=== PATIENT | female | born 1960 | race Caucasian/White ===

== ENCOUNTER 2017-11-30 08:46 | Day surgery (SDC) | payer OTHER ==
[2017-11-30] MEDS ORDERED: PROPOFOL 200 MG/20 ML VIAL As Ordered (09:15)
[2017-11-30] MEDS ORDERED: LIDOCAINE 2% INJ 100 MG/5 ML SDV (FOR ANES.) As Ordered (09:15)
[2017-11-30] MEDS ORDERED: NS 1,000 ML IV (09:45)
== END 2017-11-30 11:05 | disposition home or self-care (01) ==
LOC: M OPP 08:46
DX: Z12.11 Encounter for screening for malignant neoplasm of colon (principal); Z86.010 Personal history of colon polyps; K57.30 Diverticulosis of large intestine without perforation or abscess without bleeding; K64.8 Other hemorrhoids; K62.89 Other specified diseases of anus and rectum; I10 Essential (primary) hypertension; E78.5 Hyperlipidemia, unspecified; E11.9 Type 2 diabetes mellitus without complications; Z78.0 Asymptomatic menopausal state; N32.81 Overactive bladder; Z79.84 Long term (current) use of oral hypoglycemic drugs; Z79.899 Other long term (current) drug therapy; Z80.3 Family history of malignant neoplasm of breast
CPT/HCPCS: 45378

== ENCOUNTER → 2020-02-26 | Outpatient (CLI) | payer OTHER ==
[~2020-02-26] MED LIST: ATOR1TAB21 PO; FENO145T7 PO; GLIP-162 PO; INVO100T PO; JANU100T PO; METF10004 PO; OXYB5TAB10 PO
== END ==
LOC: M LABSMTC 10:01
PROVIDERS: ATTEND Pediatrics
DX: Z20.828 Contact with and (suspected) exposure to other viral communicable diseases (principal)

== ENCOUNTER → 2022-05-29 | Outpatient (REF) | payer OTHER | LOC: M SFHCDERM 18:23 | PROVIDERS: ATTEND Nurse Practitioner Family | DX: D23.39 Other benign neoplasm of skin of other parts of face (principal) ==

== ENCOUNTER 2023-02-20 06:49 | Day surgery (SDC) | payer OTHER ==
[~2023-02-20] VITALS: Ht 152.4 cm; Wt 73.0 kg
[~2023-02-20 06:49] MED LIST changes: +JARD1TAB3 PO; +NS 1,000 ML IV ONE; -OXYB5TAB10 PO; +OXYB5TAB11 PO
[2023-02-20] MEDS ORDERED: propofoL 200 MG/20 ML VIAL As Ordered ONE ×2 (08:10→08:17)
[2023-02-20 08:26] VITALS: TEMP 97.5
[2023-02-20 08:44] VITALS: BP 127/77; O2SAT 96
== END 2023-02-20 08:58 | disposition home or self-care (01) ==
LOC: M OPP 06:49
PROVIDERS: ATTEND Internal Medicine Gastroenterology
DX: Z12.11 Encounter for screening for malignant neoplasm of colon (principal); Z86.010 Personal history of colon polyps; E11.9 Type 2 diabetes mellitus without complications; Z79.02 Long term (current) use of antithrombotics/antiplatelets; Z79.84 Long term (current) use of oral hypoglycemic drugs

== ENCOUNTER 2023-06-01 12:13 | Day surgery (SDC) | payer OTHER ==
[~2023-06-01] VITALS: Ht 152.4 cm; Wt 73.2 kg
[~2023-06-01 12:13] MED LIST changes: -NS 1,000 ML IV ONE; -OXYB5TAB11 PO; +OXYB5TAB14 PO
[2023-06-01] MEDS: NS 1,000 ML IV ONE (12:37)
[2023-06-01] MEDS ORDERED: LIDOCAINE 2% 100MG/5ML SDV (FOR ANES.) As Ordered ONE (14:02)
[2023-06-01] MEDS ORDERED: propofoL 200 MG/20 ML VIAL As Ordered ONE (14:02)
[2023-06-01] MEDS ORDERED: LABETALOL 100MG/20ML VIAL As Ordered ONE (14:11)
[2023-06-01 14:18] VITALS: TEMP 98.5
[2023-06-01 14:41] VITALS: BP 144/72; O2SAT 98
== END 2023-06-01 14:53 | disposition home or self-care (01) ==
LOC: M OPP 12:13
PROVIDERS: ATTEND Internal Medicine Gastroenterology
DX: Z86.010 Personal history of colon polyps (principal); K63.5 Polyp of colon; K63.2 Fistula of intestine; K64.8 Other hemorrhoids; K57.30 Diverticulosis of large intestine without perforation or abscess without bleeding; E11.9 Type 2 diabetes mellitus without complications; Z79.02 Long term (current) use of antithrombotics/antiplatelets; Z79.84 Long term (current) use of oral hypoglycemic drugs; Z79.899 Other long term (current) drug therapy
CPT/HCPCS: 45385; 88305; J1920